=== PATIENT | male | born 1955 | race Caucasian/White ===

== ENCOUNTER → 2016-12-03 | Outpatient (CLI) | payer OTHER ==
--- NOTE | 2016-12-04 03:08 | REP ---
Clinical: Emphysema. Comparison: 10/26/2015, 10/28/2014. Findings: Moderate emphysematous changes along with associated bronchiectasis and minimal scattered scarring / interstitial changes are again appreciated and relatively stable. The previously noted small subpleural density in the left lower lobe remains essentially unchanged and may reflect small area of scarring (image [id number]). Very subtle small ground-glass opacities in the left upper lung zone likely represent transient areas of atelectasis. No consolidation, significant nodule or mass lesion. No pleural effusion/reaction or pneumothorax. No obvious adenopathy. Mild/moderate atherosclerotic changes to the coronary arteries again noted and unchanged. Thoracic aorta without aneurysm. Surrounding musculoskeletal structures intact. Impression: 1. Moderate emphysematous changes with associated bronchiectasis essentially unchanged. 2. Small subpleural density in the left lower lobe remains stable and likely represents area of scarring. 3. Very subtle small areas of ground-glass opacity in the left upper lung zone/apex likely represent transient atelectasis. 4. No obvious, significant mediastinal or pleuroparenchymal process otherwise noted. Signed by Pa Salazar MD 12/04/2016 03:00 A
== END ==
LOC: M RAD 14:07
PROVIDERS: ATTEND Internal Medicine Pulmonary Disease
DX: J43.2 Centrilobular emphysema (principal)

== ENCOUNTER → 2018-01-14 | Outpatient (CLI) | payer OTHER | LOC: M RAD 13:40 | DX: Z12.2 Encounter for screening for malignant neoplasm of respiratory organs (principal); Z87.891 Personal history of nicotine dependence; I25.10 Atherosclerotic heart disease of native coronary artery without angina pectoris; J44.9 Chronic obstructive pulmonary disease, unspecified | CPT/HCPCS: G0297 ==

== ENCOUNTER → 2018-02-10 | Outpatient (CLI) | payer OTHER ==
[~2018-02-10] MED LIST: ISOVUE-370 76% 100ML VIAL (Q9967) As Ordered
== END ==
LOC: M RAD 08:24
DX: D38.0 Neoplasm of uncertain behavior of larynx (principal); J39.2 Other diseases of pharynx
CPT/HCPCS: Q9967

== ENCOUNTER 2018-02-17 10:20 | Day surgery (SDC) | payer OTHER ==
[2018-02-17] MEDS: LIDOCAINE W/EPINEPHRINE 1% 20ML VIAL As Ordered (10:45)
[2018-02-17] MEDS: LR 1,000 ML IV (11:25)
[2018-02-17] MEDS ORDERED: ONDANSETRON 4MG/2ML VIAL (J2405) As Ordered (12:16)
[2018-02-17] MEDS ORDERED: PROPOFOL 200 MG/20 ML VIAL As Ordered ×2 (12:16→14:00)
[2018-02-17] MEDS ORDERED: LIDOCAINE 2% INJ 100 MG/5 ML SDV (FOR ANES.) As Ordered (12:16)
[2018-02-17] MEDS ORDERED: dexameTHASONE 4 MG/ML 1ML VIAL (J1100) As Ordered ×2 (12:16)
[2018-02-17] MEDS ORDERED: fentaNYL 100 MCG/2 ML INJECTION (J3010) As Ordered (12:16)
[2018-02-17] MEDS ORDERED: MIDAZOLAM INJ 2 MG/2 ML VIAL (J2250) As Ordered (12:16)
[2018-02-17] MEDS ORDERED: ROCURONIUM BROMIDE 50 MG/5 ML VIAL As Ordered (13:06)
[2018-02-17] MEDS ORDERED: SUGAMMADEX SODIUM 500 MG/5 ML VIAL (BRIDION) As Ordered (13:07)
[2018-02-17] MEDS: METHYLENE BLUE 0.5% (5MG/ML) 10 ML AMP (PROVAYBLUE)(Q9968 PER 1MG) As Ordered (13:09)
[2018-02-17] MEDS: OXYMETAZOLINE NASAL SPRAY (AFRIN) As Ordered (13:09)
[2018-02-17] MEDS: dexameTHASONE 4 MG/ML 1ML VIAL (J1100) IV (13:12)
[2018-02-17] MEDS ORDERED: SUCCINYLCHOLINE 100 MG/5 ML SYRINGE (J0330) As Ordered (13:15)
[2018-02-17] MEDS ORDERED: GLYCOPYRROLATE INJ 0.2 MG/ML 2 ML VIAL As Ordered (13:16)
[2018-02-17] MEDS ORDERED: fentaNYL 100 MCG/2 ML INJECTION (J3010) IV (14:45)
[2018-02-17] MEDS ORDERED: LR 1,000 ML IV (14:45)
[2018-02-17] MEDS ORDERED: ONDANSETRON 4MG/2ML VIAL (J2405) IV (14:45)
[2018-02-17] MEDS ORDERED: NORCO, ANEXSIA 5/325MG TABLET (HYDROcodone/ACETAMINOPHEN) As Ordered (15:12)
[2018-02-17] MEDS: NORCO, ANEXSIA 5/325MG TABLET (HYDROcodone/ACETAMINOPHEN) PO ×2 (15:30→15:51)
== END 2018-02-17 16:31 | disposition home or self-care (01) ==
LOC: M SDC 10:20
DX: C32.9 Malignant neoplasm of larynx, unspecified (principal); R49.0 Dysphonia; J44.9 Chronic obstructive pulmonary disease, unspecified; K21.9 Gastro-esophageal reflux disease without esophagitis; G47.30 Sleep apnea, unspecified; Z79.82 Long term (current) use of aspirin; Z79.899 Other long term (current) drug therapy; Z87.891 Personal history of nicotine dependence
CPT/HCPCS: 31536

== ENCOUNTER → 2018-03-11 | Outpatient (CLI) | payer OTHER | LOC: M ONCR 13:07 | DX: C32.9 Malignant neoplasm of larynx, unspecified (principal) | CPT/HCPCS: 99201 ==

== ENCOUNTER 2018-03-17 12:37 | Outpatient (RCR) | payer OTHER | END 2018-03-30 | LOC: M ST 12:37 | DX: C32.0 Malignant neoplasm of glottis (principal) | CPT/HCPCS: 92610 ==

== ENCOUNTER → 2018-03-25 | Outpatient (CLI) | payer OTHER | LOC: M PLARAD 08:34 | DX: C32.0 Malignant neoplasm of glottis (principal) | CPT/HCPCS: 78815 ==

== ENCOUNTER 2018-03-26 08:58 | Day surgery (SDC) | payer OTHER ==
[~2018-03-26 08:58] MED LIST changes: -ISOVUE-370 76% 100ML VIAL (Q9967) As Ordered; +LIDOCAINE 2% MDV 20 ML VIAL As Ordered; +PROPOFOL 200 MG/20 ML VIAL As Ordered
[2018-03-26] MEDS ORDERED: UNASYN 3 GM VIAL As Ordered (09:13)
[2018-03-26] MEDS: NS 1,000 ML IV (09:40)
[2018-03-26] MEDS: AMPICILLIN SOD/SULBACTAM SOD 3 GM in D5W MINI-BAG PLUS 100 ML IV (09:45)
== END 2018-03-26 11:11 | disposition home or self-care (01) ==
LOC: M OPP 08:58
DX: C32.0 Malignant neoplasm of glottis (principal); D38.0 Neoplasm of uncertain behavior of larynx; R63.3 Feeding difficulties; Z43.1 Encounter for attention to gastrostomy; I10 Essential (primary) hypertension; E78.5 Hyperlipidemia, unspecified; R01.1 Cardiac murmur, unspecified; K21.9 Gastro-esophageal reflux disease without esophagitis; R12 Heartburn; M19.90 Unspecified osteoarthritis, unspecified site; J44.9 Chronic obstructive pulmonary disease, unspecified; G47.8 Other sleep disorders; G47.30 Sleep apnea, unspecified; R06.83 Snoring; Z87.891 Personal history of nicotine dependence; Z79.82 Long term (current) use of aspirin; Z79.899 Other long term (current) drug therapy
CPT/HCPCS: 43246

== ENCOUNTER 2018-04-01 13:16 | Outpatient (RCR) | payer OTHER | END 2018-04-30 | LOC: M ST 13:16 | DX: C32.0 Malignant neoplasm of glottis (principal) ==

== ENCOUNTER 2018-04-09 08:37 | Day surgery (SDC) | payer OTHER ==
[2018-04-09] MEDS: LR 1,000 ML IV (09:41)
[2018-04-09] MEDS ORDERED: ONDANSETRON 4MG/2ML VIAL (J2405) As Ordered (13:17)
[2018-04-09] MEDS ORDERED: LIDOCAINE 2% INJ 100 MG/5 ML SDV (FOR ANES.) As Ordered (13:17)
[2018-04-09] MEDS ORDERED: dexameTHASONE 4 MG/ML 1ML VIAL (J1100) As Ordered (13:17)
[2018-04-09] MEDS ORDERED: MIDAZOLAM INJ 2 MG/2 ML VIAL (J2250) As Ordered (13:17)
[2018-04-09] MEDS ORDERED: PROPOFOL 200 MG/20 ML VIAL As Ordered ×3 (13:18→14:20)
[2018-04-09] MEDS ORDERED: fentaNYL 100 MCG/2 ML INJECTION (J3010) As Ordered (13:50)
[2018-04-09] MEDS: HEPARIN SOD (PORCINE) 5000 UNITS/ML VIAL As Ordered (14:09)
[2018-04-09] MEDS: LIDOCAINE 1% SDV INJ 30 ML VIAL As Ordered (14:30)
[2018-04-09] MEDS: BUPIVACAINE HCL 0.25% 30 ML VIAL As Ordered (14:30)
== END 2018-04-09 15:50 | disposition home or self-care (01) ==
LOC: M SDC 08:37
DX: C32.0 Malignant neoplasm of glottis (principal); R93.3 Abnormal findings on diagnostic imaging of other parts of digestive tract; K64.8 Other hemorrhoids; I10 Essential (primary) hypertension; E78.00 Pure hypercholesterolemia, unspecified; K40.90 Unilateral inguinal hernia, without obstruction or gangrene, not specified as recurrent; J43.9 Emphysema, unspecified; M12.9 Arthropathy, unspecified; R06.83 Snoring; G47.33 Obstructive sleep apnea (adult) (pediatric); Z79.899 Other long term (current) drug therapy; Z79.82 Long term (current) use of aspirin
CPT/HCPCS: 45378

== ENCOUNTER 2018-04-21 13:04 | Outpatient (RCR) | payer OTHER ==
--- NOTE | 2018-04-02 10:27 | RADONC ---
RADIATION ONCOLOGY SIMULATION NOTE: DATE: 04/01/2018 CHART NUMBER: [id number] Mr. Hammonds was taken to the CT scan for CT simulation of his head and neck field. CT was accomplished without difficulty or discomfort. Radiation treatment planning is underway and radiation treatments will begin subsequently. An immobilization device including a mask was created without difficulty or discomfort. It will be used throughout the course of treatment. I was physically present throughout the course of CT simulation. The patient's PET scan showed a lesion in the anal area. I did a rectal examination today and I did not appreciate any anal lesion. There was some lona-like stool in the patient's rectum which made examination a little more difficult. The patient is scheduled to be seen by Dr. Espinoza on who will be undertaking an anal evaluation. I have decided to go ahead at this time with the simulation so that we can be ready to start as soon as the patient is ready. Clearly, if it turns out he has anal cancer, we may have another issue here. In the meantime, the only known diagnosis is a head and neck cancer and I do not wish to delay his treatment further by delaying the initiation of treatment planning.
--- NOTE | 2018-04-15 08:16 | RADONC ---
RADIATION ONCOLOGY PROGRESS NOTE: DATE: 04/14/2018 CHART NUMBER: [id number] PROGRESS NOTE: Mr. Hammonds is presently at a dose of 600 cGy to his larynx and is tolerating treatments quite well at this point with no complaints related to his radiation therapy. He is having no discomfort. REVIEW OF SYSTEMS: The patient's review of systems is positive for some continued hoarseness but is otherwise noncontributory. Denies nausea, vomiting, fevers, chills, night sweats, diplopia, headaches, anxiety or depression, anorexia, weight loss, visual disturbances, chest pain, urinary or bowel difficulties, bone pain, or neurological problems. PHYSICAL EXAMINATION: The patient's skin is in good condition with no evidence of radiation change present. There is no moist or dry desquamation. The remainder of his physical exam remains unchanged. Mr. Hammonds is tolerating treatments quite well and radiation will continue as scheduled.
[~2018-04-21 13:04] MED LIST changes: +ASPI81TA85 PO; +ATOR40TA75 PO; +BREO1INH3 INH; +DEXA4TA PO; +INCR1INH IN; +K-TA10TA PO; -LIDOCAINE 2% MDV 20 ML VIAL As Ordered; +LISI10TA2 PO; +METO1TAB87 PO; +OLAN10TA2 PO; +OMEP-218 PO; +ONDA8TAB7 PO; +PROC10TA4 PO; -PROPOFOL 200 MG/20 ML VIAL As Ordered; +RANE1000 PO; +SUPETAB25 PO; +VENTAER INH; +VITA2000 PO
[2018-04-21] MEDS ORDERED: NYST50SS PO (14:00)
--- NOTE | 2018-04-22 11:03 | RADONC ---
RADIATION ONCOLOGY PROGRESS NOTE: DATE: 04/21/2018 CHART NUMBER: [id number] PROGRESS NOTE: Mr. Hammonds is presently at a dose of 1600 cGy to his larynx and overall is tolerating his treatments fairly well, although he is complaining of a sore throat and difficulty swallowing. REVIEW OF SYSTEMS: The patient's review of systems is positive for sore oral cavity and throat with difficulty swallowing but is otherwise noncontributory. Denies nausea, vomiting, fevers, chills, night sweats, diplopia, headaches, anxiety or depression, anorexia, weight loss, visual disturbances, chest pain, urinary or bowel difficulties, bone pain, or neurological problems. PHYSICAL EXAMINATION: The patient's skin is in good condition with no evidence of moist or dry desquamation. His oral cavity shows thrush throughout the oral cavity. There is very little mucositis. His physical exam is otherwise positive for a 5 pound weight loss in the past week. It is otherwise unchanged. Mr. Hammonds is tolerating his treatments with some discomfort. I have given the patient a prescription for nystatin for his thrush. In the meantime, radiation will continue as scheduled.
== END 2018-04-30 ==
LOC: M ONCR 13:04
PROVIDERS: ATTEND Radiology Radiation Oncology
DX: C32.9 Malignant neoplasm of larynx, unspecified (principal); B37.0 Candidal stomatitis

== ENCOUNTER 2018-05-06 13:19 | Outpatient (RCR) | payer OTHER ==
[2018-05-15 14:59] LABS: ALBUMIN 3.2 GM/DL (3.2-5.2); ALBUMIN/GLOBULIN RATIO 0.94 (1.00-1.93); ALKALINE PHOSPHATASE 63 U/L (45-117); ALT/SGPT 45 U/L (12-78); ANION GAP 6 MEQ/L (8-16); AST/SGOT 25 U/L (7-37); BILIRUBIN,TOTAL 0.2 MG/DL (0.2-1.0); BLOOD UREA NITROGEN 31 MG/DL (7-18); CALCIUM LEVEL 8.8 MG/DL (8.8-10.2); CARBON DIOXIDE LEVEL 30 MEQ/L (21-32); CHLORIDE LEVEL 103 MEQ/L (98-107); CREATININE FOR GFR 1.92 MG/DL (0.70-1.30); GLOMERULAR FILTRATION RATE 38.1 (>49); GLUCOSE, FASTING 100 MG/DL (70-100); POTASSIUM SERUM 4.9 MEQ/L (3.5-5.1); SODIUM LEVEL 139 MEQ/L (136-145); TOTAL PROTEIN 6.6 GM/DL (6.4-8.2)
== END 2018-05-30 ==
LOC: M ONCR 13:19
DX: C32.9 Malignant neoplasm of larynx, unspecified (principal)
CPT/HCPCS: 77336

== ENCOUNTER 2018-06-20 13:05 | Outpatient (RCR) | payer OTHER ==
--- NOTE | 2018-06-03 14:18 | RADONC ---
RADIATION ONCOLOGY PROGRESS NOTE DATE: 06/02/2018 CHART NUMBER: [id number] Mr. Hammonds is presently a dose of 4400 cGy to his larynx and is tolerating treatments quite well at this point with no significant complaints related to his radiation therapy. He does have some mild throat discomfort. REVIEW OF SYSTEMS: The patient's review of systems is positive for some throat discomfort as well as hoarseness, but is otherwise noncontributory. He denies nausea, vomiting, fevers, chills, night sweats, diplopia, headaches, anxiety or depression, anorexia, weight loss, visual disturbances, chest pain, urinary or bowel difficulties, bone pain or neurological problems. PHYSICAL EXAMINATION: The patient's skin is in good condition with no evidence of moist or dry desquamation. The remainder of his physical exam remains unchanged. ASSESSMENT: The patient is tolerating his radiation quite well. Apparently the patient has not set up his appointment to see medical oncology in [place]. We have attempted to set him up for that and have encouraged him to do so on several occasions. I have spoken with Dr. Copeland who has spoken with the patient's physician chief of pathology and recommended that he at least discuss some type of radiation sensitizing chemo. At this time the patient still concerned, does not want to do anything until his kidneys stabilize. I have not altered fractionation schedule on this patient at this point since we did start the treatments with systemic therapy as well. In the meantime, radiation will continue as scheduled. Edited 06/03/2018 @ 1449 olivia PEACOCK
--- NOTE | 2018-06-10 13:04 | RADONC ---
RADIATION ONCOLOGY PROGRESS NOTE DATE: 06/09/2018 CHART NUMBER: [id number] Mr. Hammonds is presently at a dose of 5000 cGy to his head and neck and is tolerating treatments quite well at this point with no who significant difficulties related to his radiation therapy. He is having just some discomfort upon swallowing but overall is doing well. The patient's review of systems is positive for some esophagitis but is otherwise noncontributory. He denies nausea, vomiting, fevers, chills, night sweats, diplopia, headaches, anxiety or depression, anorexia, weight loss, visual disturbances, chest pain, urinary or bowel difficulties, bone pain, or neurological problems. PHYSICAL EXAMINATION: The patient's skin is in good condition with no evidence of moist or dry desquamation. The remainder of his physical exam remains unchanged. Mr. Hammonds is tolerating treatments quite well and radiation will continue as scheduled.
[2018-06-12 14:05] LABS: ALBUMIN 3.2 GM/DL (3.2-5.2); BILIRUBIN,TOTAL 0.4 MG/DL (0.2-1.0); CALCIUM LEVEL 8.7 MG/DL (8.8-10.2); CREATININE FOR GFR 1.7 MG/DL (0.70-1.30); GLOMERULAR FILTRATION RATE 43.8 (>49); POTASSIUM SERUM 4.6 MEQ/L (3.5-5.1); TOTAL PROTEIN 7.1 GM/DL (6.4-8.2)
--- NOTE | 2018-06-17 07:57 | RADONC ---
RADIATION ONCOLOGY PROGRESS NOTE DATE: 06/16/2018 CHART #: [id number] Mr. Hammonds is presently at a dose 6200 cGy to his larynx and is tolerating treatments quite well with no complaints at this time related to his radiation therapy other than some discomfort upon swallowing. REVIEW OF SYSTEMS: The patient's review of systems is positive for some swallowing discomfort but is otherwise noncontributory. Denies nausea, vomiting, fevers, chills, night sweats, diplopia, headaches, anxiety or depression, anorexia, weight loss, visual disturbances, chest pain, urinary or bowel difficulties, bone pain, or neurological problems. PHYSICAL EXAMINATION: The patient's skin is in good condition with no evidence of moist or dry desquamation. Oral examination reveals just some mucositis. The remainder of the physical exam remains unchanged. ASSESSMENT: The patient is clinically tolerating treatments quite well at this point and radiation will continue as scheduled.
[~2018-06-20 13:05] MED LIST changes: +NYST50SS PO; +SODIUM CHLORIDE 0.9% INJ 10 ML SYR IV PRN
--- NOTE | 2018-06-26 11:58 | RADONC ---
RADIATION ONCOLOGY TREATMENT SUMMARY DATE: 06/20/2018 CHART NUMBER: [id number] DIAGNOSIS: Glottic cancer. STAGE: III, T3N0M0. ECOG PERFORMANCE STATUS: Zero. TREATMENT SUMMARY: Mr. 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 He was slated to have concomitant systemic therapy as well. We treated the patient to his larynx for a total dose of 7000 cGy delivered in 35 fractions of 200 cGy each over a 71 elapsed days from 04/10/2018 through 06/20/2018. The patient's larynx was treated on a linear accelerator utilizing a 6 MV photon beam via IMRT/IGRT. The noninvolved lymph nodes were treated to a dose of 5000 cGy in 25 fractions of 200 cGy each again with IMRT/IGRT. Mr. Hammonds tolerated his radiation quite well with no difficulties related to his radiation therapy. We initially treated with concomitant systemic therapy. Apparently after being treated with systemic therapy, the patient went into kidney failure and the systemic therapy was discontinued. We had multiple conversations with his medical oncologist and as per her instructions attempted to set him up to be seen by medical oncology in [place] to discuss the possibility of some less nephrotoxic drugs. Dr. Copeland had been speaking with the patient's roundhouse firer/fireman and apparently the roundhouse firer/fireman did not wish him to undergo further systemic therapy. The patient is scheduled to see his roundhouse firer/fireman in the near future as well as have a consultation with medical oncology in [place]. I have scheduled to see the patient again in 1 month. cc: MD Shan Velazquez MD Ernie Cougler, MD Angel Le, DO [facility]
== END 2018-06-30 ==
LOC: M ONCR 13:05
PROVIDERS: ATTEND Radiology Radiation Oncology
DX: C32.9 Malignant neoplasm of larynx, unspecified (principal)

== ENCOUNTER → 2018-09-30 | Outpatient (CLI) | payer OTHER ==
[~2018-09-30] MED LIST changes: -SODIUM CHLORIDE 0.9% INJ 10 ML SYR IV PRN
--- NOTE | 2018-09-30 16:20 | REP ---
PET/CT: History: Malignant neoplasm of the glottis. Past post chemotherapy and radiation therapy. Comparisons: Comparison PET-CT study March 25, 2018. TECHNIQUE: 48 minutes following the intravenous injection of a 8.74 mCi dose of F-18 FDG, three-dimensional PET scintigraphy is acquired from the skull base to the proximal thighs. Triplanar noncontrast CT scanning is acquired through the same anatomic range for attenuation correction, and image registration with scan parameters optimized to minimize radiation exposure to the patient. PET scintigraphy and CT datasets were fused and displayed on a workstation with multiplanar and projection display capability. PET/CT Findings: The glottic malignant mass is much improved. There is still some asymmetric thickening in the region of the right side of the glottis. Minimally increased uptake is seen here. Maximum standard uptake value is improved to 4.59. This may be normal glottic uptake. There is no abnormal hypermetabolic adenopathy in the neck. Head and neck soft tissues are otherwise unremarkable. There is no abnormal hypermetabolic uptake in the lung [place] bilaterally. No hypermetabolic lucia uptake is seen in the chest. In the abdomen and pelvis, there is normal hepatic, splenic, gastrointestinal, and genitourinary FDG accumulation. A feeding gastrostomy tube is noted in place. No abnormal hypermetabolic uptake is seen. The previously noted anal uptake is improved and there is an interval history of negative colonoscopy. There is some mild persistent uptake in the right inguinal region consistent with prior herniorrhaphy. This is unchanged. Impression: Significantly improved glottic uptake. No evidence to suggest metastatic disease. Electronically Signed by Rao Franco MD 10/01/2018 11:07 A
== END ==
LOC: M PLARAD 11:29
PROVIDERS: ATTEND Internal Medicine
DX: C32.0 Malignant neoplasm of glottis (principal)
CPT/HCPCS: 78815; A9552

== ENCOUNTER → 2018-10-01 | Outpatient (CLI) | payer OTHER ==
--- NOTE | 2018-10-02 06:48 | RADONC ---
RADIATION ONCOLOGY FOLLOW-UP NOTE DATE: 10/01/2018 CHART NUMBER: [id number] DIAGNOSIS: Glottic cancer. STAGE: III, T3N0M0. ECOG PERFORMANCE STATUS: 0 FOLLOW-UP NOTE: Mr. 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 The patient presents today reporting that he is being seen at least monthly by his head and neck surgeon Dr. Bettencourt. He reports that he saw Dr. Bettencourt last week and is going back to Dr. Bettencourt for a laryngoscopic evaluation on Saturday. Overall, he has been doing quite well and he reports that he is eating without difficulty and having no problems swallowing. He reports no pain or other issues. He also reports that his kidney function is returning to normal and he is quite satisfied with the resolution of that issue is well. REVIEW OF SYSTEMS: The patient's review of systems is noncontributory. He denies nausea, vomiting, fevers, chills, night sweats, diplopia, headaches, anxiety or depression, anorexia, weight loss, visual disturbances, chest pain, urinary or bowel difficulties, bone pain or neurological problems. PHYSICAL EXAMINATION: The patient is a well-developed, well-nourished white male in no acute distress. HEENT: Exam is normocephalic, atraumatic. Extraocular movements are intact. Examination of the patient's oral cavity fails to reveal any lesions. There is no palpable cervical, supraclavicular, infraclavicular or axillary lymphadenopathy present. His lungs are clear to auscultation and percussion. ASSESSMENT: In light of the fact that the patient is seeing Dr. Bettencourt every 4 weeks and having routine laryngoscopic evaluations, and is also being followed by his medical oncologist, Dr. Richard Kent, in addition to his other physicians, I am discharging him from my followup except on a p.r.n. basis. I have given the patient my cell phone number as well as work number and we are available to him at anytime. At this point, since he is being seen and watched so closely and so diligently, I think requiring him to come here is unnecessary. cc: MD Nirmal Mcdermott, MD Angel Basurto, DO [facility]
== END ==
LOC: M ONCR 13:55
PROVIDERS: ATTEND Radiology Radiation Oncology
DX: Z85.21 Personal history of malignant neoplasm of larynx (principal)

== ENCOUNTER → 2020-01-08 | Outpatient (CLI) | payer OTHER ==
[~2020-01-08] MED LIST changes: -ASPI81TA85 PO; +ASPI81TA86 PO; +LISI10TA15 PO; -LISI10TA2 PO; +ONDA8TAB10 PO; -ONDA8TAB7 PO
--- NOTE | 2020-01-09 13:45 | REP ---
REASON: Tobacco abuse, followup. COMPARISON: 01/14/2018, also low-dose screening CT. As per the protocol, only lung window images were sent to the read station for interpretation. Stable-appearing chronic emphysematous changes are again noted with evidence of chronic bibasilar fibrotic change, status quo. There is a stable nodule in the left lower lobe. There are no new abnormal nodules, masses, or opacities. There is evidence of stable cylindrical bronchiectasis. Grossly, the mediastinum and pulmonary peggy are unchanged. Grossly, the imaged upper abdomen and imaged osseous structures are unchanged. IMPRESSION: Stable Lung-RADS category 2 exam. Electronically Signed by Enrique Prieto DO 01/10/2020 08:25 A
== END ==
LOC: M RAD 15:07
PROVIDERS: ATTEND Internal Medicine Pulmonary Disease
DX: Z87.891 Personal history of nicotine dependence (principal); R91.8 Other nonspecific abnormal finding of lung field